=== PATIENT | female | born 1965 | race Caucasian/White ===

== ENCOUNTER 2023-06-27 17:38 | Emergency (ER) | payer OTHER, SELFPAY ==
[2023-06-27] VITALS (11 sets, daily range): BP systolic 162–181; BP diastolic 86–113; PULSE 58–67; RESP 14–21; TEMP 36.6; O2SAT 96–99; BMI 26.9
--- NOTE | 2023-06-27 17:49 | US_ITS ---
The [address] [address] Patient Name: MONROE ABDI MRN: [id number] date: 1965 Sex: F Assigned Patient Location: ER Current Patient Location: Accession/Order Number: [id number] Exam Date: 06/27/2023 18:34 Report Date: 06/27/2023 20:59 At the request of: ISRAEL SEVILLA Procedure: US venous doppler LE LT DUPLEX ULTRASOUND LEFT LOWER EXTREMITY: INDICATION: DVT. COMPARISON: None available. TECHNIQUE: Negrete-scale and Duplex ultrasound was performed of the left lower extremity. FINDINGS: There is normal negrete scale, color, and spectral Doppler of the left common femoral, superficial femoral, popliteal veins with no evidence of deep venous thrombosis. Compressibility and augmentation of the Doppler waveform was observed at several levels. Compressibility was also seen in the left posterior tibial, anterior tibial and peroneal veins as well as the greater saphenous and short saphenous veins. US/US venous doppler LE LT IMPRESSION: Negative for left lower extremity deep venous thrombosis. Electronically authenticated by: CATHLEEN EKITA Date: 06/27/2023 20:59
--- NOTE | 2023-06-27 17:54 | XR_ITS ---
The [address] [address] Patient Name: MONROE ABDI MRN: [id number] date: 1965 Sex: F Assigned Patient Location: ER Current Patient Location: ER Accession/Order Number: [id number] Exam Date: 06/27/2023 18:15 Report Date: 06/27/2023 18:55 At the request of: ISRAEL SEVILLA Procedure: XR chest 1V EXAMINATION: XR chest 1V 06/27/2023 3:54 PM PST HISTORY: Hypertension TECHNIQUE: Single frontal view of the chest acquired. COMPARISONS: None. FINDINGS: Lines/tubes/other: None. Heart and mediastinum: The cardiac silhouette is upper limits of normal for size. Bones: No acute osseous abnormality. Lungs: The lungs are clear. There is no evidence of pneumonia or pulmonary edema. Pleura: There is no significant pleural effusion or pneumothorax. Other: None. XR/XR chest 1V IMPRESSION: No acute cardiopulmonary abnormality. Electronically authenticated by: DEVIN DE LEON Date: 06/27/2023 18:55
--- NOTE | 2023-06-27 17:54 | CT_ITS ---
The [address] [address] Patient Name: MONROE ABDI MRN: [id number] date: 1965 Sex: F Assigned Patient Location: ER Current Patient Location: ER Accession/Order Number: [id number] Exam Date: 06/27/2023 18:15 Report Date: 06/27/2023 18:59 At the request of: ISRAEL SEVILLA Procedure: CT head/brain wo con EXAM: CT head/brain wo con; [id number] REASON FOR EXAM: Hypertension, headaches COMPARISON: None. TECHNIQUE: Axial CT images of the head obtained without contrast. Multiplanar reformats generated at the scanner. Dose reduction technique used: Automated exposure control and/or adjustment of the mA and/or kV according to patient size and/or use of iterative reconstruction technique. FINDINGS: Parenchyma: -Normal parenchymal pattern. -No midline shift or mass effect. Basilar cisterns are patent. -No acute intracranial hemorrhage. -No loss of cortical eaton-white differentiation to indicate acute cortical infarct. Extra-axial spaces: No extra-axial fluid collection or hemorrhage. Ventricles: Normal in size and symmetric. Paranasal sinuses: Partial opacification of bilateral posterior ethmoid air cells. No layering sinus fluid. Mastoid air cells: Visualized mastoids are clear. Orbits: No acute abnormality. Osseous: No acute findings. Soft tissues: No acute abnormality. CT/CT head/brain wo con IMPRESSION: No acute intracranial abnormality demonstrated. Electronically authenticated by: DEVIN DE LEON Date: 06/27/2023 18:59
--- NOTE | 2023-06-27 17:54 | ECG_ITS ---
The [facility] Test Date: 2023-06-27 Pat Name: MONROE ABDI Department: Room: - Gender: Female [employer]: : 1965 Requested By: Order Number: [id number] Reading MD: HENNA JIMENEZ Measurements Intervals [place] Rate: 59 P: 16 [place]: 180 QRS: 13 QRSD: 88 T: 15 QT: 422 QTc: 421 Interpretive Statements 1100 Sinus rhythm 8102 Low QRS voltage in chest leads 9120 atypical ECG No previous ECG available for comparison Electronically Signed On 06-28-2023 7:06:38 EST by HENNA JIMENEZ
--- NOTE | 2023-06-27 17:55 | ED_ITS ---
HPI - General Adult General Chief complaint: Extremity Problem, Nontraumatic Stated complaint: Left Leg Pain Time Seen by Provider: 06/27/23 17:49 Source: patient Mode of arrival: walk-in Limitations: no limitations History of Present Illness HPI narrative: Patient is a 58-year-old female who presents to the emergency department for evaluation of multiple complaints. Patient was initially seen, complaining of pain in the posterior left calf for 1 week. She saw her PCP today who ordered an outpatient ultrasound to rule out DVT tomorrow morning, patient states she could not spend the night not knowing if she has a blood clot. Patient denies any mechanism of injury or trauma. She denies chest pain, shortness of breath. She feels as though the back of the calf is slightly swollen but there has been no redness, firmness, rashes or drainage. She states when she gets up to walk around, she has pain that seems to ease as she walks more. Patient's presented to bedside and further complains of headaches for several weeks with no associated visual changes, peripheral paresthesias. She was found to have elevated blood pressure by her PCP today and was instructed to double her blood pressure medication. No further testing was ordered. Related Data Home Medications Medication Instructions Recorded Confirmed escitalopram oxalate 5 mg tablet 5 mg PO DAILY 06/27/23 06/27/23 famotidine 40 mg tablet 40 mg PO DAILY 06/27/23 06/27/23 meloxicam 15 mg tablet 15 mg PO DAILY 06/27/23 06/27/23 metoprolol succinate 100 mg 50 mg PO Q12H 06/27/23 06/27/23 tablet,extended release 24 hr tolterodine 4 mg capsule,extended 4 mg PO Q24H 06/27/23 06/27/23 release 24 hr Previous Rx's Medication Instructions Recorded [id number]-jxffucahzlkaj-jzulkfpz 1 cap PO Q8H PRN pain 3 days #10 06/27/23 50 mg-300 mg-40 mg capsule caps (Fioricet) ciprofloxacin HCl 500 mg tablet 500 mg PO Q12H #14 tabs 06/27/23 methocarbamol 750 mg tablet 750 mg PO TID PRN pain #20 tabs 06/27/23 Allergies Allergy/AdvReac Type Severity Reaction Status Date / Time cephalexin [From Keflex] AdvReac Intermediate Verified 06/27/23 17:41 tetanus and diphtheria AdvReac Intermediate Verified 06/27/23 17:41 toxoids Review of Systems ROS Constitutional Denies: fever or chills Eyes Denies: change in vision Ears, nose, mouth, and throat Denies: throat pain or nasal congestion Cardiovascular Denies: chest pain Respiratory Denies: shortness of breath Gastrointestinal Denies: nausea or vomiting Musculoskeletal Reports: extremity pain Integumentary/Breast Denies: rash Neurological Reports: headache; Denies: numbness in extremities, weakness in extremities, dizziness or vertigo Psychiatric Denies: anxiety Endocrine Denies: excessive urination Hematologic/Lymphatic Denies: easy bruising [facility] Medical History (Updated 06/27/23 @ 20:44 by RICH Ivory) Hypertension ?I10 - Essential (primary) hypertension (ICD-10) Social History Smoking status: Never smoker Exam Narrative Exam Narrative: Gen.: Awake, alert, in no distress Head: Normocephalic, atraumatic ENT: Moist mucous membranes Respiratory: No respiratory distress, lungs clear bilaterally Cardio: Regular rate and rhythm Extremities: Moves extremities equally, no injuries noted; no calf erythema, no open wounds or drainage. 2+ DP pulses bilaterally. No appreciable swelling noted of the left lower extremity Psych: Normal mood and affect Neuro: No focal neuro deficit Skin: Warm, dry, intact Constitutional Vital Signs, click to edit/add: Last Vital Signs Temp 97.8 F 06/27/23 17:41 Pulse 61 06/27/23 18:50 Resp 15 06/27/23 18:50 BP 166/89 H 06/27/23 18:46 Pulse Ox 98 06/27/23 18:50 O2 Del Method Room Air 06/27/23 17:41 Course Vital Signs Vital signs: Vital Signs Temperature 97.8 F 06/27/23 17:41 Pulse Rate 67 06/27/23 17:41 Respiratory Rate 18 06/27/23 17:41 Blood Pressure 181/99 H 06/27/23 17:41 Pulse Oximetry 98 06/27/23 17:41 Oxygen Delivery Method Room Air 06/27/23 17:41 Temperature 97.8 F 06/27/23 17:41 Pulse Rate 61 06/27/23 18:50 Respiratory Rate 15 06/27/23 18:50 Blood Pressure 166/89 H 06/27/23 18:46 Pulse Oximetry 98 06/27/23 18:50 Oxygen Delivery Method Room Air 06/27/23 17:41 Medical Decision Making MDM Narrative Medical decision making narrative: Patient initially declined any medication for pain in the leg or the head, lab studies reviewed and noted showing no evidence of acute abnormalities other than mild UTI. Oral Cipro given in the ER. She was noted to have labile blood pressures and was given IV hydralazine and Vasotec with improvement. She then requested medication for headache, she was treated with Fioricet with improvement. Repeat blood pressure is 162/96. Her blood pressure has been addressed with her PCP and she should follow recommendations from the primary care office. CT of the brain, chest x-ray, ultrasound of the left lower extremity with no evidence of abnormalities. The remainder of the labs are unremarkable and she is discharged home with a prescription for Robaxin and Fioricet as needed. Return to the ER if symptoms change or worsen. Patient reevaluated by attending physician prior to discharge. Medical Records Medical records reviewed: Yes I reviewed the patient's medical records Lab Data Lab results reviewed: Yes I reviewed the patient's lab results Labs: Lab Results 06/27/23 06/27/23 Range/Units 18:05 19:10 WBC 6.7 (4.0-11.0) 10^3/uL RBC 4.54 (4.20-5.40) 10^6/uL Hgb 13.2 (12.0-16.0) g/dL Hct 40.9 (36.0-48.0) % MCV 90.1 (81.0-99.0) fL MCH 29.1 (26.7-34.0) pg MCHC 32.3 (29.9-35.2) g/dL RDW 12.8 (11.0-15.0) % Plt Count 243 (150-450) 10^3/uL MPV 11.0 (9.5-13.5) fL Neut % (Auto) 54.6 (43.0-75.0) % Lymph % (Auto) 29.3 (20.5-60.0) % [place]iss % (Auto) 10.3 (1.7-12.0) % Eos % (Auto) 4.8 (0.9-7.0) % Baso % (Auto) 0.9 (0.2-2.0) % Neut # (Auto) 3.7 (1.4-6.5) 10^3/uL Lymph # (Auto) 2.0 (1.2-3.8) 10^3/uL Prentiss # (Auto) 0.7 (0.3-0.8) 10^3/uL Eos # (Auto) 0.3 (0.0-0.7) 10^3/uL Baso # (Auto) 0.1 (0.0-0.1) 10^3/uL Abs Immat Gran (auto) 0.01 (0.00-0.03) 10^3/uL Imm/Tot Granulo (auto) 0.1 (0.0-0.5) % PT 10.9 (9.0-11.6) sec INR 1.03 Sodium 141 (136-145) mmol/L Potassium 3.5 (3.5-5.1) mmol/L Chloride 106 (98-107) mmol/L Carbon Dioxide 29.6 (21.0-32.0) mmol/L Anion Gap 8.9 BUN 21.0 H (7.0-18.0) mg/dL Creatinine 0.90 (0.55-1.02) mg/dL Est GFR ( Amer) >60 (>=60) Est GFR (Non-Af Amer) >60 (>=60) BUN/Creatinine Ratio 23.3 Glucose 81 (74-106) mg/dL Lactate 1.1 (0.4-2.0) mmol/L Calcium 8.7 (8.5-10.1) mg/dL Magnesium 2.0 (1.8-2.4) mg/dL Total Bilirubin 0.4 (0.2-1.0) mg/dL AST 16 (15-37) U/L ALT 26 (14-59) U/L Alkaline Phosphatase 86 (46-116) U/L Troponin I High Sens 9.9 (4.0-51.3) pg/mL Total Protein 7.5 (6.4-8.2) g/dL Albumin 3.4 (3.4-5.0) g/dL Globulin 4.1 g/dL Albumin/Globulin Ratio 0.8 TSH 1.329 (0.358-3.740) uIU/mL Urine Color Lt. yellow (YELLOW) Urine Clarity Clear (CLEAR) Urine pH 6.0 (5.0-9.0) Ur Specific [place] <=1.005 A (1.005-1.025) Urine Protein Negative (NEG/TRACE) mg/dL Urine Glucose (UA) Negative (NEGATIVE) mg/dL Urine Ketones Negative (NEGATIVE) mg/dL Urine Occult Blood Small A (NEGATIVE) Urine Nitrite Negative (NEGATIVE) Urine Bilirubin Negative (NEGATIVE) Urine Urobilinogen 0.2 (0.2-1.0) EU/dL Ur Leukocyte Esterase Large A (NEGATIVE) Urine RBC 0-2 (0-2) #/HPF Urine WBC 10-20 A (NONE SEEN) #/HPF Ur Squamous Epith Cells Few A (NONE/RARE) #/LPF Ur Transition Epith Cell Few A (NONE SEEN) #/LPF Urine Crystals None seen (None Seen) #/HPF Urine Bacteria None seen (NONE SEEN) #/HPF Urine Casts None seen (NONE SEEN) #/LPF Urine Mucus None seen (NONE SEEN) Ur Culture Indicated? Yes Imaging Data CT scan - head: Attestation: I have reviewed the pertinent imaging results. Radiologist's impression: Procedure: CT head/brain wo con EXAM: CT head/brain wo con; [id number] REASON FOR EXAM: Hypertension, headaches COMPARISON: None. TECHNIQUE: Axial CT images of the head obtained without contrast. Multiplanar reformats generated at the scanner. Dose reduction technique used: Automated exposure control and/or adjustment of the mA and/or kV according to patient size and/or use of iterative reconstruction technique. FINDINGS: Parenchyma: -Normal parenchymal pattern. -No midline shift or mass effect. Basilar cisterns are patent. -No acute intracranial hemorrhage. -No loss of cortical eaton-white differentiation to indicate acute cortical infarct. Extra-axial spaces: No extra-axial fluid collection or hemorrhage. Ventricles: Normal in size and symmetric. Paranasal sinuses: Partial opacification of bilateral posterior ethmoid air cells. No layering sinus fluid. Mastoid air cells: Visualized mastoids are clear. Orbits: No acute abnormality. Osseous: No acute findings. Soft tissues: No acute abnormality. IMPRESSION: No acute intracranial abnormality demonstrated. Electronically authenticated by: DEVIN DE LEON Date: 06/27/2023 18:59 Chest x-ray: Attestation: I have reviewed the pertinent imaging results. Radiologist's impression: Procedure: XR chest 1V EXAMINATION: XR chest 1V 06/27/2023 3:54 PM PST HISTORY: Hypertension TECHNIQUE: Single frontal view of the chest acquired. COMPARISONS: None. FINDINGS: Lines/tubes/other: None. Heart and mediastinum: The cardiac silhouette is upper limits of normal for size. Bones: No acute osseous abnormality. Lungs: The lungs are clear. There is no evidence of pneumonia or pulmonary edema. Pleura: There is no significant pleural effusion or pneumothorax. Other: None. IMPRESSION: No acute cardiopulmonary abnormality. Electronically authenticated by: DEVIN DE LEON Date: 06/27/2023 18:55 ECG Data Attestation: I personally reviewed and interpreted this ECG as follows: (Normal sinus rhythm at a rate of 59, no acute ST elevation or ectopy. EKG reviewed by attending physician) Discharge Plan Discharge Chief Complaint: Extremity Problem, Nontraumatic Clinical Impression: UTI (urinary tract infection), Headache, Left leg pain Patient Disposition: Home, Self-Care Time of Disposition Decision: 20:44 Condition: Good Prescriptions / Home Meds: New methocarbamol 750 mg tablet 750 mg PO TID PRN (Reason: pain) Qty: 20 0RF [id number] [Fioricet] 50-300-40 mg capsule 1 cap PO Q8H PRN (Reason: pain) 3 Days Qty: 10 0RF Rx Instructions: DX: R51 ciprofloxacin HCl 500 mg tablet 500 mg PO Q12H Qty: 14 0RF No Action escitalopram oxalate 5 mg tablet 5 mg PO DAILY meloxicam 15 mg tablet 15 mg PO DAILY metoprolol succinate 100 mg tablet extended release 24 hr 50 mg PO Q12H tolterodine 4 mg capsule,extended release 24hr 4 mg PO Q24H famotidine 40 mg tablet 40 mg PO DAILY Instructions: Urinary Tract Infection in Women (ED), Acute Headache (ED), Leg Pain (ED) Stand Alone Forms: Portal Instructions Referrals: MAHNAZ MERCADO [Primary Care Provider] - 1 week
[2023-06-27 19:20] LABS: Basophils Absolute Auto 0.1 10^3/uL (0.0-0.1); Basophils Percent Auto 0.9 % (0.2-2.0); Eosinophils Absolute Auto 0.3 10^3/uL (0.0-0.7); Eosinophils Percent Auto 4.8 % (0.9-7.0); Hematocrit 40.9 % (36.0-48.0); Hemoglobin 13.2 g/dL (12.0-16.0); Immature Granulocytes Abs Auto 0.01 10^3/uL (0.00-0.03); Immature Granulocytes Pct Auto 0.1 % (0.0-0.5); Lymphocytes Percent Auto 29.3 % (20.5-60.0); Mean Corpuscular HGB Conc 32.3 g/dL (29.9-35.2); Mean Corpuscular Hemoglobin 29.1 pg (26.7-34.0); Mean Corpuscular Volume 90.1 fL (81.0-99.0); Monocytes Absolute Auto 0.7 10^3/uL (0.3-0.8); Monocytes Percent Auto 10.3 % (1.7-12.0); Neutrophils Absolute Auto 3.7 10^3/uL (1.4-6.5); Neutrophils Percent Auto 54.6 % (43.0-75.0); Platelet Count 243 10^3/uL (150-450); Red Blood Count 4.54 10^6/uL (4.20-5.40); Red Cell Distribution Width 12.8 % (11.0-15.0); White Blood Count 6.7 10^3/uL (4.0-11.0)
[2023-06-27 19:32] LABS: Bilirubin Urine NEGATIVE (NEGATIVE); Blood Urine SMALL (NEGATIVE); Clarity Urine CLEAR (CLEAR); Color Urine LT. YELLOW (YELLOW); Glucose Urine UA NEGATIVE (NEGATIVE); Ketones Urine NEGATIVE (NEGATIVE); Leukocyte Esterase Urine LARGE (NEGATIVE); Nitrite Urine NEGATIVE (NEGATIVE); Protein Urine NEGATIVE (NEG/TRACE); Specific Gravity Urine <=1.005 (1.005-1.025); Urobilinogen Urine 0.2 EU/dL (0.2-1.0)
[2023-06-27 19:33] LABS: Urine Microscopic Indicated YES
[2023-06-27 19:34] LABS: Alanine Aminotransferase 26 U/L (14-59); Albumin Globulin Ratio 0.8; Albumin Level 3.4 g/dL (3.4-5.0); Alkaline Phosphatase 86 U/L (46-116); Anion Gap 8.9; Aspartate Amino Transferase 16 U/L (15-37); BUN Creatinine Ratio 23.3; Bilirubin Total 0.4 mg/dL (0.2-1.0); Calcium 8.7 mg/dL (8.5-10.1); Carbon Dioxide 29.6 mmol/L (21.0-32.0); Chloride 106 mmol/L (98-107); Estimated GFR (African America >60 (>=60); Estimated GFR (Non-African Ame >60 (>=60); Globulin 4.1 g/dL; Glucose 81 mg/dL (74-106); Potassium 3.5 mmol/L (3.5-5.1); Sodium 141 mmol/L (136-145); Total Protein 7.5 g/dL (6.4-8.2)
[2023-06-27 19:37] LABS: INR 1.03; Lactate/Lactic Acid 1.1 mmol/L (0.4-2.0); Prothrombin Time 10.9 sec (9.0-11.6)
[2023-06-27 19:43] LABS: Thyroid Stimulating Hormone 1.329 uIU/mL (0.358-3.740); Troponin I High Sensitivity 9.9 pg/mL (4.0-51.3)
[2023-06-27 19:44] LABS: Bacteria Urine NONE SEEN #/HPF (NONE SEEN); Cast Seen? NONE SEEN #/LPF (NONE SEEN); Crystals Seen? None Seen #/HPF (None Seen); Mucus Urine NONE SEEN (NONE SEEN); RBC Urine 0-2 #/HPF (0-2); Squamous Epithelial Cell Urine FEW #/LPF (NONE/RARE); Transitional Epi Cells Urine FEW #/LPF (NONE SEEN); Urine Culture Indicated YES
[2023-06-27] MEDS: BUTALB/ACETAMINOPHEN/CAFFEINE 50-325-40MG TABLET 1 TAB PO (19:58)
[2023-06-27] MEDS: HYDRALAZINE HCL 20 MG/ML VIAL 10 MG IVP (19:58)
[2023-06-27] MEDS: ENALAPRILAT DIHYDRATE 1.25 MG/ML VIAL IV (19:59)
[2023-06-27] MEDS: CIPROFLOXACIN HCL 500 MG TABLET PO (20:54)
== END 2023-06-27 20:58 | disposition home or self-care (01) ==
PROVIDERS: Physician Assistant; Emergency Provider Emergency Medicine; PCP Family Medicine
DX: N39.0 Urinary tract infection, site not specified (principal); R51.9 Headache, unspecified; M79.605 Pain in left leg; I10 Essential (primary) hypertension; Z79.899 Other long term (current) drug therapy
CPT/HCPCS: 36415; 70450; 71045; 80053; 81001; 83605; 83735; 84443; 84484; 85025; 85610; 87086; 93005; 93971; 96374; 96375; 99285